=== PATIENT | female | born 1965 | race Caucasian/White ===

== ENCOUNTER 2019-12-05 21:53 | Emergency (ER) | payer OTHER ==
[~2019-12-05] VITALS: Ht 157.5 cm; Wt 88.9 kg
[2019-12-05 21:58] VITALS: BP 196/110
== END 2019-12-05 23:07 | disposition home or self-care (01) ==
LOC: ED 21:53
DX: S51.012A Laceration without foreign body of left elbow, initial encounter (principal); I10 Essential (primary) hypertension; W26.8XXA Contact with other sharp object(s), not elsewhere classified, initial encounter; Y93.89 Activity, other specified; Y92.89 Other specified places as the place of occurrence of the external cause; Y99.8 Other external cause status
CPT/HCPCS: J2001

== ENCOUNTER 2019-12-07 17:43 | Emergency (ER) | payer OTHER ==
[~2019-12-07] VITALS: Ht 157.5 cm; Wt 89.4 kg
[2019-12-07 17:49] VITALS: Ht 157.5 cm; Wt 89.4 kg
[2019-12-07 19:29] VITALS: BP 165/109
== END 2019-12-07 19:29 | disposition home or self-care (01) ==
LOC: ED 17:43
DX: S51.012D Laceration without foreign body of left elbow, subsequent encounter (principal); I10 Essential (primary) hypertension; Z76.0 Encounter for issue of repeat prescription; X58.XXXD Exposure to other specified factors, subsequent encounter